=== PATIENT | female | born 1985 | race Caucasian/White ===

== ENCOUNTER 2023-03-16 06:32 | Emergency (ER) | payer MEDICAID ==
[~2023-03-16] VITALS: Ht 165.1 cm; Wt 74.8 kg
[2023-03-16 06:42] VITALS: BP_SYST 129; PULSE 103; RESP 20; TEMP 98.1; O2SAT 99
[2023-03-16] MEDS ORDERED: POLYTRIM EACH EYE (06:55)
[2023-03-16 07:07] VITALS: BP_SYST 129; PULSE 103; RESP 20; TEMP 98.1; O2SAT 99
== END 2023-03-16 07:09 | disposition home or self-care (01) ==
LOC: SED 06:32
DX: H10.9 Unspecified conjunctivitis (principal); H57.89 Other specified disorders of eye and adnexa; R05.9 Cough, unspecified; Z79.899 Other long term (current) drug therapy
CPT/HCPCS: 99283